=== PATIENT | male | born 1985 | race Caucasian/White ===

== ENCOUNTER 2017-04-25 22:29 | Emergency (ER) | payer SELFPAY ==
[2017-04-25] MEDS ORDERED: LORazepam 2 MG/ML INJ IVP ONE (22:34)
[2017-04-25] MEDS ORDERED: ONDANSETRON 4 MG/2 ML VIAL IVP ONE (22:34)
[2017-04-25] MEDS ORDERED: NS 1,000 ML IV ONE ×2 (22:34)
--- NOTE | 2017-04-25 22:35 | EDPHY ---
H & P HPI/ROS: CHIEF COMPLAINT: Seizure HISTORY OF PRESENT ILLNESS: This patient is a 32-year-old male, he presents emergency room after he had a witnessed seizure by friends. EMS reported seizure activity by 2 min. This was witnessed by friends. Generalized clonic activity. Patient's states he has never had a seizure. Patient reports that he was just hospitalized last week for alcohol withdrawal. He drinks all daily. He thinks that he may have he missed alcohol yesterday. His last drink he thinks was 2 days ago. Upon arrival to the emergency room he is tachycardic and tremulous. He is complaining of nausea. He denies chest pain or shortness of breath. He does have abrasion to the lateral aspect of his tongue. On the right side. Otherwise no bowel bladder incontinence. The patient was postictal per EMS. The patient is now alert and oriented x4 upon arrival to the emergency room. Past Medical History: Alcohol withdrawal, alcoholism Past Surgical History: Significant surgery Social History: Daily alcohol use. Denies illicit drugs or tobacco. Family History: Noncontributory ROS REVIEW OF SYSTEMS: A comprehensive 10 point review of systems is otherwise negative aside from elements mentioned in the history of present illness. Exam Constitutional appears nontoxic triage nursing summary reviewed, vital signs reviewed, awake/alert. Tachycardic 113. Somewhat tremulous. Eyes normal conjunctivae and sclera, EOMI, PERRLA. HENT normal inspection, atraumatic, moist mucus membranes, no epistaxis, neck supple/ no meningismus, no raccoon eyes. Respiratory clear to auscultation bilaterally, normal breath sounds, no respiratory distress, no wheezing. Cardiovascular tachycardic, regular rhythm, no murmur, no edema, distal pulses normal. Gastrointestinal soft, non-tender, no rebound, no guarding, normal bowel sounds, no distension, no pulsatile mass. Genitourinary no CVA tenderness. Musculoskeletal no midline vertebral tenderness, full range of motion, no calf swelling, no tenderness of extremities, no meningismus, good pulses, neurovascularly intact. Skin pink, warm, & dry, no rash, skin atraumatic. Neurologic tremulous. awake, alert and oriented x 3, AAOx3, moves all 4 extremities equally, motor intact, sensory intact, CN II-XII intact, normal cerebellar, normal vision, normal speech. Psychiatric normal mood/affect. Heme/Lymph/Immune no lymphadenopathy. Differential Diagnosis: Includes but is not limited to in a particular order acute alcohol withdrawal, electrolyte disturbance, dehydration, alcohol draw seizure, alcohol dependency. Medical Decision Making: Plan for this patient IV establishment IV fluid bolus 1 L normal saline, IV Ativan for seizure activity, Zofran for nausea, CT scan head without contrast, basic electrolytes re-evaluate. Re-evaluation: CT scan head without contrast for seizure shows no evidence of acute traumatic injury. Brain atrophy noted. No bleed. 2339: Patient's blood work is reviewed. Low bicarb consistent with seizure activity. Patient's electrolytes are appropriate. CBC unremarkable. CT scan unremarkable. Patient feeling better after 2 L normal saline, IV Phenergan IV Zofran and IV Ativan. Most likely cause of seizure is the absence of alcohol in a daily drinker. Vital signs have improved. Heart rate down to 89. Patient feeling much better. 1254: Patient re-evaluate and he is sleeping. Heart rate in the 80s. He is resting comfortably has no complaints. He is no longer tremulous. I feel comfortable allowing him to go to the [facility]. I recommend he refrain from drinking alcohol. Librium will be provided. Source: Patient - Medical/Surgical History Hx Asthma: No Hx Chronic Respiratory Disease: No Hx Diabetes: No Hx Cardiac Disease: No Hx Renal Disease: No Hx Cirrhosis: No Hx Alcoholism: Yes Hx HIV/AIDS: No Hx Splenectomy or Spleen Trauma: No Other PMH: a-fib. sugery lump in mouth removed, scoliosis - Social History Smoking Status: Former smoker Constitutional: Initial Vital Signs Heart Rate 102 H 04/25/17 22:34 Respiratory Rate 20 04/25/17 22:34 Blood Pressure 125/90 H 04/25/17 22:34 O2 Sat (%) 97 04/25/17 22:34 O2 Delivery Mode Room Air Allergies/Adverse Reactions: tree nut [nuts] Allergy (Mild, Verified 07/21/14 09:24) Home Medications: Medication Instructions Recorded NK [No Known Home Meds] 07/22/14 Medical Decision Making - Diagnostics Imaging Results: Imaging Impressions Head CT 04/25/17 22:36 Impression: 1. Mild diffuse atrophy. 2. No acute hemorrhage, hydrocephalus, or mass effect. 3. No epidural or subdural hematoma. Findings and recommendations discussed with Emergency Department physician, Sundar Aguilar MD at 23:13 hour, 04/25/2017. Final report concurs with initial preliminary interpretation. - Data Points Laboratory Results: Laboratory Results 04/25/17 22:20 04/25/17 22:20 04/26/17 04/25/17 04/25/17 00:00 22:20 22:20 WBC 9.58 10^3/uL H 10^3/uL (3.80-9.50) RBC 4.74 10^6/uL 10^6/uL (4.40-6.38) Hgb 15.5 g/dL g/dL (13.7-17.5) Hct 45.5 % % (40.0-51.0) MCV 96.0 fL fL (81.5-99.8) MCH 32.7 pg pg (27.9-34.1) MCHC 34.1 g/dL g/dL (32.4-36.7) RDW 13.2 % % (11.5-15.2) Plt Count 289 10^3/uL 10^3/uL (150-400) MPV 9.9 fL fL (8.7-11.7) Neut % (Auto) 50.2 % % (39.3-74.2) Lymph % (Auto) 34.6 % % (15.0-45.0) [place] % (Auto) 13.0 % % (4.5-13.0) Eos % (Auto) 0.4 % L % (0.6-7.6) Baso % (Auto) 1.5 % % (0.3-1.7) Nucleat RBC Rel Count 0.0 % % (0.0-0.2) Absolute Neuts (auto) 4.81 10^3/uL 10^3/uL (1.70-6.50) Absolute Lymphs (auto) 3.31 10^3/uL H 10^3/uL (1.00-3.00) Absolute Monos (auto) 1.25 10^3/uL H 10^3/uL (0.30-0.80) Absolute Eos (auto) 0.04 10^3/uL 10^3/uL (0.03-0.40) Absolute Basos (auto) 0.14 10^3/uL H 10^3/uL (0.02-0.10) Absolute Nucleated RBC 0.00 10^3/uL 10^3/uL (0-0.01) Immature Gran % 0.3 % % (0.0-1.1) Immature Gran # 0.03 10^3/uL 10^3/uL (0.00-0.10) Sodium 136 mEq/L mEq/L (135-145) Potassium 3.6 mEq/L mEq/L (3.5-5.2) Chloride 96 mEq/L L mEq/L (97-110) Carbon Dioxide 9 mEq/l L* mEq/l (22-31) Anion Gap 31 mEq/L H mEq/L (8-16) BUN 7 mg/dL mg/dL (7-23) Creatinine 1.0 mg/dL mg/dL (0.7-1.3) Estimated GFR > 60 Glucose 129 mg/dL H mg/dL (70-100) Calcium 10.4 mg/dL mg/dL (8.5-10.4) Total Bilirubin 1.4 mg/dL mg/dL (0.1-1.4) Conjugated Bilirubin 0.4 mg/dL mg/dL (0.0-0.5) Unconjugated Bilirubin 1.0 mg/dL mg/dL (0.0-1.1) AST 40 IU/L IU/L (17-59) ALT 22 IU/L IU/L (21-72) Alkaline Phosphatase 68 IU/L IU/L (38-126) Total Protein 8.2 g/dL g/dL (6.3-8.2) Albumin 5.7 g/dL H g/dL (3.5-5.0) Lipase 136 IU/L IU/L (23-300) Urine Opiates Screen NEGATIVE (NEGATIVE) Urine Barbiturates NEGATIVE (NEGATIVE) Ur Phencyclidine Scrn NEGATIVE (NEGATIVE) Ur Amphetamine Screen NEGATIVE (NEGATIVE) U Benzodiazepines Scrn NON-NEGATIVE H (NEGATIVE) Urine Cocaine Screen NEGATIVE (NEGATIVE) U Marijuana (THC) Screen NON-NEGATIVE H (NEGATIVE) Ethyl Alcohol < 10 mg/dL mg/dL (0-10) Medications Given: Discontinued Medications Sodium Chloride (Ns) 1,000 mls @ 0 mls/hr IV EDNOW ONE; Wide Open PRN Reason: Protocol Stop: 04/25/17 22:35 Last Admin: 04/25/17 22:52 Dose: 1,000 mls Sodium Chloride (Ns) 1,000 mls @ 0 mls/hr IV EDNOW ONE; Wide Open PRN Reason: Protocol Stop: 04/25/17 22:35 Last Admin: 04/25/17 22:52 Dose: 1,000 mls Lorazepam (Ativan Injection) 1 mg IVP EDNOW ONE Stop: 04/25/17 22:35 Last Admin: 04/25/17 22:52 Dose: 1 mg Ondansetron HCl (Zofran) 4 mg IVP EDNOW ONE Stop: 04/25/17 22:35 Last Admin: 04/25/17 22:52 Dose: 4 mg Promethazine HCl (Phenergan) 6.25 mg IVP ONCE ONE Stop: 04/25/17 22:57 Last Admin: 04/25/17 23:04 Dose: 6.25 mg Departure - Departure Disposition: Home, Routine, Self-Care Clinical Impression: Alcohol withdrawal Qualifiers: Complication of substance-induced condition: with unspecified complication Qualified Code(s): F10.239 - Alcohol dependence with withdrawal, unspecified Condition: Good Instructions: Alcohol Withdrawal (ED) Referrals: Patient,NotPresent [Unknown] - As per Instructions
[2017-04-25 22:43] LABS: PLATELET COUNT 289 10^3/uL (150-400)
[2017-04-25] MEDS ORDERED: PROMETHAZINE HCL 25 MG/ML INJ IVP ONE (22:56)
[2017-04-26] MEDS ORDERED: CHLORDIAZEPOXIDE 25MG PREPK#6 BTL TAKEHOME ONE (00:56)
[2017-04-26] MEDS ORDERED: chlordiazePOXIDE 25 MG CAP PO ONE (00:57)
[2017-04-26 01:03] VITALS: BP 122/76; PULSE 91; RESP 20; TEMP 99; O2SAT 98
== END 2017-04-26 01:25 | disposition home or self-care (01) ==
LOC: EDUNIT#
DX: F10.239 Alcohol dependence with withdrawal, unspecified (principal); E86.9 Volume depletion, unspecified; Z87.891 Personal history of nicotine dependence
CPT/HCPCS: 80305; 96374; G0480; J2060; J2405; J2550

== ENCOUNTER 2018-03-10 12:24 | Emergency (ER) | payer SELFPAY ==
[2018-03-10] MEDS ORDERED: ONDANSETRON 4 MG/2 ML VIAL IVP ONE (13:24)
[2018-03-10] MEDS ORDERED: NS 1,000 ML IV ONE ×2 (13:24→13:57)
[2018-03-10] MEDS ORDERED: PROMETHAZINE HCL 25 MG/ML INJ IVP ONE (13:24)
--- NOTE | 2018-03-10 13:24 | EDPHY ---
HPI/HX/ROS/PE/MDM Narrative: CHIEF COMPLAINT: Nausea, vomiting, abdominal pain, possible medication side effects HISTORY OF PRESENT ILLNESS: The patient is a 33 y/o male with a history of alcoholism and marijuana use complaining of nausea and vomiting secondary to naltrexone taken to reduce alcohol cravings. Last alcohol intake was 14 days ago and has not had any alcohol since then. He has been using marijuana to reduce the cravings for alcohol. Last Sunday, 7 days ago, his primary care provider prescribed naltrexone to further reduce alcohol cravings. He reports the naltrexone made him nauseated. He was prescribed Zofran for nausea and had some improvement in nausea. He began vomiting this morning, prompting his visit. He has associated abdominal pain in the right upper quadrant, constipation, lower flank pain bilaterally, lightheadedness, headache, and a small amount of blood in his emesis. He has a history of ketoacidosis and gastritis with withdrawal. He denies diarrhea, difficulty urinating, swelling in the legs, rash, or other associated symptoms. He denies history of diabetes, abdominal surgery, or other relevant conditions. No fever, chills, chest pain, shortness of breath, palpitations, diarrhea, urinary complaints. REVIEW OF SYSTEMS: A comprehensive 10 system review of systems is otherwise negative aside from elements mentioned in the history of present illness and medical decision making PAST MEDICAL HISTORY: Alcoholism, marijuana use, ketoacidosis and gastritis with withdrawal SOCIAL HISTORY: petroleum transport driver, lives in [place], medicaid patient VITAL SIGNS: Reviewed by me GENERAL: Well-developed, well-nourished, resting in no respiratory distress. Shaky. HEENT: Atraumatic. Eyes: No icterus, no injection. Mouth: moist mucous membranes. No erythema or lesions. Neck: supple with no adenopathy. LUNGS: Clear to auscultation bilaterally, no wheezes, rhonchi or rales. CARDIAC: Regular rate and rhythm, no rubs, murmurs or gallops. ABDOMEN: Diffuse abdominal tenderness, worse in the upper abdomen. Soft, nondistended, bowel sounds normal. No guarding or rebound. BACK: No CVA tenderness. EXTREMITIES: No trauma. No edema. Range of motion is normal throughout. NEURO: Tremulous. Alert and oriented, grossly nonfocal. SKIN: Warm and dry, no rash. No icterus. PSYCHIATRIC: Normal mentation, no agitation. ED Course: The patient presents with nausea and vomiting. He went through alcohol withdrawal recently and has been taking naltrexone to decrease alcohol cravings. He believes the naltrexone has been causing his nausea and vomiting. Zofran has not improved his symptoms. He has complaints of abdominal pain, lower bilateral back pain, and constipation. Plan for CBC, basic metabolic panel , lipase, liver function, and urinalysis. 1 L NS fluids, 4 mg Zofran, and 12.5 mg Phenergan for symptoms. 2:40 PM: The patient's condition has improved. He is beginning an PO challenge. 3:00 PM: The patient's labs are largely unremarkable. He is tolerating water at this time, but reports that the nausea has not gone away. Plan for Ativan and further PO challenges. 3:45 p.m.: Patient has improved with respect was nausea after the Ativan. He still complains of epigastric abdominal pain. Patient received ketamine 20 mg IV. He was comfortable being discharged with Phenergan to use for ongoing nausea. He will not take the naltrexone today and will follow up with his primary care physician tomorrow. Abdomen is soft, mild epigastric tenderness, no guarding or rebound. Labs including LFTs and lipase are normal. MDM: Differential diagnosis of the patient's nausea and vomiting was considered including but not limited to gastroenteritis, gastritis, alcohol intoxication, withdrawal symptoms, intraabdominal processes including appendicitis, pancreatitis, bowel obstruction and medication side effect. - Data Points Laboratory Results: Laboratory Results 03/10/18 13:24 03/10/18 13:24 03/10/18 03/10/18 03/10/18 13:40 13:24 13:24 WBC 6.52 10^3/uL 10^3/uL (3.80-9.50) RBC 5.31 10^6/uL 10^6/uL (4.40-6.38) Hgb 17.0 g/dL g/dL (13.7-17.5) Hct 46.9 % % (40.0-51.0) MCV 88.3 fL fL (81.5-99.8) MCH 32.0 pg pg (27.9-34.1) MCHC 36.2 g/dL g/dL (32.4-36.7) RDW 12.8 % % (11.5-15.2) Plt Count 336 10^3/uL 10^3/uL (150-400) MPV 10.0 fL fL (8.7-11.7) Neut % (Auto) 82.4 % H % (39.3-74.2) Lymph % (Auto) 8.1 % L % (15.0-45.0) [place] % (Auto) 7.7 % % (4.5-13.0) Eos % (Auto) 0.8 % % (0.6-7.6) Baso % (Auto) 0.8 % % (0.3-1.7) Nucleat RBC Rel Count 0.0 % % (0.0-0.2) Absolute Neuts (auto) 5.37 10^3/uL 10^3/uL (1.70-6.50) Absolute Lymphs (auto) 0.53 10^3/uL L 10^3/uL (1.00-3.00) Absolute Monos (auto) 0.50 10^3/uL 10^3/uL (0.30-0.80) Absolute Eos (auto) 0.05 10^3/uL 10^3/uL (0.03-0.40) Absolute Basos (auto) 0.05 10^3/uL 10^3/uL (0.02-0.10) Absolute Nucleated RBC 0.00 10^3/uL 10^3/uL (0-0.01) Immature Gran % 0.2 % % (0.0-1.1) Immature Gran # 0.01 10^3/uL 10^3/uL (0.00-0.10) RBC/WBC/PLT Morphology TNP Platelet Estimate TNP Sodium 139 mEq/L mEq/L (135-145) Potassium 3.9 mEq/L mEq/L (3.3-5.0) Chloride 104 mEq/L mEq/L (97-110) Carbon Dioxide 24 mEq/l mEq/l (22-31) Anion Gap 11 mEq/L mEq/L (6-14) BUN 13 mg/dL mg/dL (7-23) Creatinine 1.0 mg/dL mg/dL (0.7-1.3) Estimated GFR > 60 Glucose 105 mg/dL H mg/dL (70-100) Calcium 9.8 mg/dL mg/dL (8.5-10.4) Total Bilirubin 1.2 mg/dL mg/dL (0.1-1.4) Conjugated Bilirubin 0.3 mg/dL mg/dL (0.0-0.5) Unconjugated Bilirubin 0.9 mg/dL mg/dL (0.0-1.1) AST 25 IU/L IU/L (17-59) ALT 35 IU/L IU/L (21-72) Alkaline Phosphatase 69 IU/L IU/L (38-126) Total Protein 7.6 g/dL g/dL (6.3-8.2) Albumin 4.8 g/dL g/dL (3.5-5.0) Lipase 102 IU/L IU/L (23-300) Urine Color YELLOW Urine Appearance CLEAR Urine pH 8.0 H (5.0-7.5) Ur Specific [place] 1.020 (1.002-1.030) Urine Protein 2+ H (NEGATIVE) Urine Ketones TRACE H (NEGATIVE) Urine Blood NEGATIVE (NEGATIVE) Urine Nitrate NEGATIVE (NEGATIVE) Urine Bilirubin NEGATIVE (NEGATIVE) Urine Urobilinogen NEGATIVE EU EU (0.2-1.0) Ur Leukocyte Esterase NEGATIVE (NEGATIVE) Urine RBC 1-3 /hpf /hpf (0-3) Urine WBC 1-3 /hpf /hpf (0-3) Ur Epithelial Cells TRACE /lpf /lpf (NONE-1+) Urine Mucus TRACE /lpf /lpf (NONE-1+) Urine Glucose NEGATIVE (NEGATIVE) Medications Given: Discontinued Medications Sodium Chloride (Ns) 1,000 mls @ 0 mls/hr IV EDNOW ONE; Wide Open PRN Reason: Protocol Stop: 03/10/18 13:25 Last Admin: 03/10/18 13:30 Dose: 1,000 mls Sodium Chloride (Ns) 1,000 mls @ 0 mls/hr IV ONCE ONE; Wide Open PRN Reason: Protocol Stop: 03/10/18 13:58 Last Admin: 03/10/18 14:34 Dose: 1,000 mls Ketamine HCl (Ketamine) 20 mg IVP EDNOW ONE Stop: 03/10/18 16:08 Last Admin: 03/10/18 16:46 Dose: 20 mg Lorazepam (Ativan Injection) 1 mg IVP EDNOW ONE Stop: 03/10/18 15:11 Last Admin: 03/10/18 15:14 Dose: 1 mg Ondansetron HCl (Zofran) 4 mg IVP EDNOW ONE Stop: 03/10/18 13:25 Last Admin: 03/10/18 13:30 Dose: 4 mg Promethazine HCl (Phenergan) 12.5 mg IVP EDNOW ONE Stop: 03/10/18 13:25 Last Admin: 03/10/18 13:30 Dose: 12.5 mg General Time Seen by Provider: 03/10/18 13:15 Initial Vital Signs: Initial Vital Signs Temperature (C) 36.4 C 03/10/18 12:26 Heart Rate 91 03/10/18 12:26 Respiratory Rate 18 03/10/18 12:26 Blood Pressure 188/166 H 03/10/18 12:26 O2 Sat (%) 98 03/10/18 12:26 O2 Delivery Mode Room Air Allergies/Adverse Reactions: tree nut [nuts] Allergy (Mild, Verified 03/10/18 12:25) Home Medications: Medication Instructions Recorded Ondansetron Odt [Zofran Odt] 4 mg PO Q4PRN PRN #7 tab 02/26/18 Promethazine HCl [Phenergan 12.5mg 12.5 mg PO Q8 PRN #12 tablet 03/10/18 tab] Departure - Departure Disposition: Home, Routine, Self-Care Clinical Impression: Nausea & vomiting Qualifiers: Vomiting type: unspecified Vomiting Intractability: non-intractable Qualified Code(s): R11.2 - Nausea with vomiting, unspecified Medication reaction Qualifiers: Encounter type: initial encounter Qualified Code(s): T50.905A - Adverse effect of unspecified drugs, medicaments and biological substances, initial encounter Condition: Good Instructions: Acute Nausea and Vomiting (ED), Abdominal Pain (ED) Additional Instructions: 1. Take phergan as directed as needed for nausea. 2. Follow up with your primary care provider regarding the naltrexone tomorrow. 3. Return to the emergency department for any worsening of condition, including vomiting blood, increased abdominal pain, or other worsening. Referrals: [facility] [Other] - As per Instructions Prescriptions: Promethazine HCl [Phenergan 12.5mg tab] 12.5 mg PO Q8 PRN #12 tablet PRN Reason: nausea Report Scribed for: Sahara Roche Report Scribed by: Joya Mcadams Date of Report: 03/10/18 Time of Report: 14:14 Physician Review and Approval Statement: Portions of this note were transcribed by a medical instrument technician. I personally performed a history, physical exam, medical decision making, and confirmed accuracy of information the transcribed note.
[2018-03-10 13:36] LABS: PLATELET COUNT 336 10^3/uL (150-400)
[2018-03-10] MEDS ORDERED: LORazepam 2 MG/ML INJ IVP ONE (15:10)
[2018-03-10] MEDS ORDERED: KETAMINE 200 MG/20 ML VIAL IVP ONE (16:07)
[2018-03-10 16:55] VITALS: BP 108/71
== END 2018-03-10 16:53 | disposition home or self-care (01) ==
DX: R11.2 Nausea with vomiting, unspecified (principal); T50.905A Adverse effect of unspecified drugs, medicaments and biological substances, initial encounter; E86.9 Volume depletion, unspecified; K92.0 Hematemesis; R51 Headache
CPT/HCPCS: 96374; J2060; J2405; J2550

== ENCOUNTER 2018-05-16 08:57 | Inpatient (IN) | payer MEDICAID ==
[2018-05-16] MEDS ORDERED: NS 1,000 ML IV ONE (09:31)
[2018-05-16] MEDS ORDERED: ONDANSETRON 4 MG/2 ML VIAL IVP ONE ×2 (09:31→10:59)
[2018-05-16] MEDS ORDERED: LORazepam 2 MG/ML INJ IVP ONE ×2 (09:41→09:43)
[2018-05-16] MEDS ORDERED: LORazepam 1 MG TAB PO PRN (09:47)
[2018-05-16] MEDS: LORazepam 2 MG/ML INJ IVP PRN ×6 (09:52→17:25)
--- NOTE | 2018-05-16 10:34 | EDPHY ---
H & P Stated Complaint: ETOH withdrawl, n/v Time Seen by Provider: 05/16/18 09:31 HPI/ROS: CHIEF COMPLAINT: Alcohol withdrawal, vomiting HISTORY OF PRESENT ILLNESS: 33-year-old male with alcoholism presents with vomiting and tremulousness. Last alcoholic beverage was yesterday morning. Onset of vomiting yesterday evening, unable to tolerate oral fluids. Associated with diffuse tremulousness and visual hallucinations. Unable to sleep last evening d/t vomiting and anxiety. Symptoms are moderate. History of prior alcohol withdrawal seizure and prior admission for alcohol withdrawal. REVIEW OF SYSTEMS: complete 10 point ROS reviewed and is negative except for the noted elements in the HPI - Personal History Current Tetanus/Diphtheria Vaccine: Yes Current Tetanus Diphtheria and Acellular Pertussis (TDAP): Yes - Medical/Surgical History Hx Asthma: No Hx Chronic Respiratory Disease: No Hx Diabetes: No Hx Cardiac Disease: No Hx Renal Disease: No Hx Cirrhosis: No Hx Alcoholism: Yes Hx HIV/AIDS: No Hx Splenectomy or Spleen Trauma: No Other PMH: a-fib, ETOH. sugery lump in mouth removed, scoliosis - Social History Smoking Status: Former smoker Alcohol Use: Heavy Drug Use: None - Physical Exam Exam: General Appearance: Alert, pleasant, seen after IV Ativan Eyes: Pupils equal and round, no conjunctival pallor or injection ENT, Mouth: Mucous membranes dry Neck: Normal inspection Respiratory: Lungs are clear to auscultation Cardiovascular: Regular tachycardia Gastrointestinal: Abdomen is soft and nontender Neurological: A&O, resting tremor, nonfocal exam Skin: Warm and dry Extremities: Normal inspection Psychiatric: Anxious Constitutional: Initial Vital Signs Temperature (C) 36.9 C 05/16/18 09:19 Heart Rate 111 H 05/16/18 09:19 Respiratory Rate 20 05/16/18 09:19 Blood Pressure 121/95 H 05/16/18 09:19 O2 Sat (%) 96 05/16/18 09:19 O2 Delivery Mode Room Air Allergies/Adverse Reactions: tree nut [nuts] Allergy (Mild, Verified 05/16/18 09:19) Home Medications: Medication Instructions Recorded NK [No Known Home Meds] 05/16/18 Medical Decision Making ED Course/Re-evaluation: Patient presents in acute alcohol withdrawal. CIWA 26. CIWA protocol initiated on patient arrival. On my exam, he feels better after an initial Ativan 4 mg IV. He remains tachycardic and slightly tremulous. Nausea has resolved. A 2nd L of normal saline was given. Labs c/w AKA. Will observe and continue the CIWA protocol. 1230: nausea resolved, continues to be agitated and tremulous after Ativan 6mg IV and 2l NS. CIWA 7. Will admit for alcohol withdrawal. The hospitalist service was consulted for admission. 2:00 p.m.: Ativan 1 mg IV given for increasing tremulousness. The patient was transported to the SDU in improved condition. Differential Diagnosis: includes though not limited to delirium tremens, alcohol withdrawal seizure, severe dehydration, electrolyte abnormality, hypoglycemia. - Data Points Laboratory Results: Laboratory Results 05/16/18 09:46 05/16/18 09:46 05/16/18 05/16/18 05/16/18 09:46 09:46 09:46 WBC 12.20 10^3/uL H 10^3/uL (3.80-9.50) RBC 4.87 10^6/uL 10^6/uL (4.40-6.38) Hgb 15.9 g/dL g/dL (13.7-17.5) Hct 47.0 % % (40.0-51.0) MCV 96.5 fL fL (81.5-99.8) MCH 32.6 pg pg (27.9-34.1) MCHC 33.8 g/dL g/dL (32.4-36.7) RDW 15.9 % H % (11.5-15.2) Plt Count 296 10^3/uL 10^3/uL (150-400) MPV 10.5 fL fL (8.7-11.7) Neut % (Auto) 88.2 % H % (39.3-74.2) Lymph % (Auto) 4.1 % L % (15.0-45.0) [place] % (Auto) 6.8 % % (4.5-13.0) Eos % (Auto) 0.0 % L % (0.6-7.6) Baso % (Auto) 0.5 % % (0.3-1.7) Nucleat RBC Rel Count 0.0 % % (0.0-0.2) Absolute Neuts (auto) 10.76 10^3/uL H 10^3/uL (1.70-6.50) Absolute Lymphs (auto) 0.50 10^3/uL L 10^3/uL (1.00-3.00) Absolute Monos (auto) 0.83 10^3/uL H 10^3/uL (0.30-0.80) Absolute Eos (auto) 0.00 10^3/uL L 10^3/uL (0.03-0.40) Absolute Basos (auto) 0.06 10^3/uL 10^3/uL (0.02-0.10) Absolute Nucleated RBC 0.00 10^3/uL 10^3/uL (0-0.01) Immature Gran % 0.4 % % (0.0-1.1) Immature Gran # 0.05 10^3/uL 10^3/uL (0.00-0.10) RBC/WBC/PLT Morphology TNP Platelet Estimate TNP Sodium 141 mEq/L mEq/L (135-145) Potassium 4.6 mEq/L mEq/L (3.5-5.2) Chloride 105 mEq/L mEq/L (97-110) Carbon Dioxide 9 mEq/l L* mEq/l (22-31) Anion Gap 27 mEq/L H mEq/L (6-14) BUN 11 mg/dL mg/dL (7-23) Creatinine 1.3 mg/dL mg/dL (0.7-1.3) Estimated GFR > 60 Glucose 157 mg/dL H mg/dL (70-100) Calcium 9.5 mg/dL mg/dL (8.5-10.4) Total Bilirubin 1.9 mg/dL H mg/dL (0.1-1.4) Conjugated Bilirubin 0.6 mg/dL H mg/dL (0.0-0.5) Unconjugated Bilirubin 1.3 mg/dL H mg/dL (0.0-1.1) AST 62 IU/L H IU/L (17-59) ALT 35 IU/L IU/L (21-72) Alkaline Phosphatase 111 IU/L IU/L (38-126) Total Protein 8.5 g/dL H g/dL (6.3-8.2) Albumin 5.4 g/dL H g/dL (3.5-5.0) Lipase 61 IU/L IU/L (23-300) Ethyl Alcohol < 10 mg/dL mg/dL (0-10) Medications Given: Lorazepam (Ativan Injection) 0 mg IVP Q1H PRN; Protocol PRN Reason: Alcohol Withdrawal w/IV access Stop: 05/16/18 21:47 Last Admin: 05/16/18 11:04 Dose: 2 mg Lorazepam (Ativan Injection) 0 mg IVP Q1H PRN; Protocol PRN Reason: Alcohol Withdrawal w/IV access Stop: 11/12/18 13:15 Last Admin: 05/16/18 14:02 Dose: 1 mg Discontinued Medications Sodium Chloride (Ns) 1,000 mls @ 0 mls/hr IV ONCE ONE; Wide Open PRN Reason: Protocol Stop: 05/16/18 09:32 Last Admin: 05/16/18 09:36 Dose: 1,000 mls Lorazepam (Ativan Injection) 1 mg IVP EDNOW ONE Stop: 05/16/18 09:42 Last Admin: 05/16/18 09:48 Dose: 1 mg Lorazepam (Ativan Injection) 1 mg IVP EDNOW ONE Stop: 05/16/18 09:44 Last Admin: 05/16/18 09:47 Dose: 1 mg Ondansetron HCl (Zofran) 4 mg IVP EDNOW ONE Stop: 05/16/18 09:32 Last Admin: 05/16/18 09:36 Dose: 4 mg Ondansetron HCl (Zofran) 4 mg IVP EDNOW ONE Stop: 05/16/18 11:00 Last Admin: 05/16/18 11:00 Dose: 4 mg Departure - Departure Disposition: [facility] Acute Clinical Impression: Alcohol withdrawal Qualifiers: Complication of substance-induced condition: with unspecified complication Qualified Code(s): F10.239 - Alcohol dependence with withdrawal, unspecified Condition: Fair
[2018-05-16] MEDS ORDERED: ONDANSETRON 4 MG/2 ML VIAL ONE (10:56)
[2018-05-16 11:46] LABS: PLATELET COUNT 296 10^3/uL (150-400)
[2018-05-16] MEDS ORDERED: ONDANSETRON DISINTEGRATING 4 MG TAB PO PRN (13:16)
[2018-05-16] MEDS ORDERED: NS 500 ML IV PRN (13:16)
[2018-05-16] MEDS ORDERED: FLUMAZENIL 0.5 MG/5 ML MDV IVP PRN (13:16)
[2018-05-16] MEDS ORDERED: ONDANSETRON 4 MG/2 ML VIAL IVP PRN (13:16)
[2018-05-16] MEDS ORDERED: ACETAMINOPHEN 325 MG TAB PO PRN (13:16)
--- NOTE | 2018-05-16 13:39 | PDGENHP ---
History and Physical - Chief Complaint alcohol withdrawal - History of Present Illness Patient is a 33-year-old male with past medical history of heavy alcohol abuse presents to the ER with alcohol withdrawal. He says that he drinks about a L of vodka per day and his last drink was yesterday. He says he wants to stop drinking and so he stopped yesterday morning. By this morning he was agitated, tremulous, anxious and heart was racing. [facility] a dose of 25 mg of Librium. He developed some nausea and vomiting while there and decided that he needed to come to the emergency room. He said that he is throwing up anything that he takes orally but has no bloody or black emesis. He denied any black or bloody stools. He does say his stomach hurts retching. Otherwise he denies any chest pain cough fevers chills or other symptoms. History Information - Allergies/Home Medication List Allergies/Adverse Reactions: tree nut [nuts] Allergy (Mild, Verified 05/16/18 09:19) Home Medications: NK [No Known Home Meds] 05/16/18 [Last Taken Unknown] I have personally reviewed and updated: family history, medical history, social history, surgical history - Past Medical History Additional medical history: alcohol abuse and dependence. - Family History Positive for: non-pertinent - Social History Smoking Status: Former smoker Review of Systems Review of Systems: ROS: 10pt was reviewed & negative except for what was stated in HPI & below Physical Exam Physical Exam: Temp Pulse Resp BP Pulse Ox 36.9 C 104 H 18 114/101 H 98 05/16/18 09:19 05/16/18 12:29 05/16/18 12:29 05/16/18 12:29 05/16/18 12:29 Constitutional: uncomfortable Eyes: PERRL, anicteric sclera, EOMI Ears, Nose, Mouth, Throat: moist mucous membranes, hearing normal, ears appear normal, no oral mucosal ulcers Cardiovascular: tachycardia, No edema Respiratory: no respiratory distress, no rales or rhonchi, clear to auscultation Gastrointestinal: normoactive bowel sounds, soft, non-tender abdomen, no palpable masses Genitourinary: no bladder fullness, no bladder tenderness Skin: warm, normal color, no rashes or abrasions, no fluctuance, no induration, No mottled Musculoskeletal: full muscle strength, no muscle tenderness, normal joint ROM, no joint effusions Neurologic: AAOx3, CN II-XII Intact Psychiatric: interacting appropriately, not encephalopathic, thought process linear, anxious, agitated Lymph, Heme, Immunologic: no cervical LAD, no supraclavicular LAD Lab Data & Imaging Review 05/16/18 09:46 02 09:46 WBC 12.20 10^3/uL (3.80-9.50) H 05/16/18 09:46 RBC 4.87 10^6/uL (4.40-6.38) 05/16/18 09:46 Hgb 15.9 g/dL (13.7-17.5) 05/16/18 09:46 Hct 47.0 % (40.0-51.0) 05/16/18 09:46 MCV 96.5 fL (81.5-99.8) 05/16/18 09:46 MCH 32.6 pg (27.9-34.1) 05/16/18 09:46 MCHC 33.8 g/dL (32.4-36.7) 05/16/18 09:46 RDW 15.9 % (11.5-15.2) H 05/16/18 09:46 Plt Count 296 10^3/uL (150-400) 05/16/18 09:46 MPV 10.5 fL (8.7-11.7) 05/16/18 09:46 Neut % (Auto) 88.2 % (39.3-74.2) H 05/16/18 09:46 Lymph % (Auto) 4.1 % (15.0-45.0) L 05/16/18 09:46 [place] % (Auto) 6.8 % (4.5-13.0) 05/16/18 09:46 Eos % (Auto) 0.0 % (0.6-7.6) L 05/16/18 09:46 Baso % (Auto) 0.5 % (0.3-1.7) 05/16/18 09:46 Nucleat RBC Rel Count 0.0 % (0.0-0.2) 05/16/18 09:46 Absolute Neuts (auto) 10.76 10^3/uL (1.70-6.50) H 05/16/18 09:46 Absolute Lymphs (auto) 0.50 10^3/uL (1.00-3.00) L 05/16/18 09:46 Absolute Monos (auto) 0.83 10^3/uL (0.30-0.80) H 05/16/18 09:46 Absolute Eos (auto) 0.00 10^3/uL (0.03-0.40) L 05/16/18 09:46 Absolute Basos (auto) 0.06 10^3/uL (0.02-0.10) 05/16/18 09:46 Absolute Nucleated RBC 0.00 10^3/uL (0-0.01) 05/16/18 09:46 Immature Gran % 0.4 % (0.0-1.1) 05/16/18 09:46 Immature Gran # 0.05 10^3/uL (0.00-0.10) 05/16/18 09:46 RBC/WBC/PLT Morphology TNP 05/16/18 09:46 Platelet Estimate TNP 05/16/18 09:46 Sodium 141 mEq/L (135-145) 05/16/18 09:46 Potassium 4.6 mEq/L (3.5-5.2) 05/16/18 09:46 Chloride 105 mEq/L (97-110) 05/16/18 09:46 Carbon Dioxide 9 mEq/l (22-31) L* 05/16/18 09:46 Anion Gap 27 mEq/L (6-14) H 05/16/18 09:46 BUN 11 mg/dL (7-23) 05/16/18 09:46 Creatinine 1.3 mg/dL (0.7-1.3) 05/16/18 09:46 Estimated GFR > 60 05/16/18 09:46 Glucose 157 mg/dL (70-100) H 05/16/18 09:46 Calcium 9.5 mg/dL (8.5-10.4) 05/16/18 09:46 Total Bilirubin 1.9 mg/dL (0.1-1.4) H 05/16/18 09:46 Conjugated Bilirubin 0.6 mg/dL (0.0-0.5) H 05/16/18 09:46 Unconjugated Bilirubin 1.3 mg/dL (0.0-1.1) H 05/16/18 09:46 AST 62 IU/L (17-59) H 05/16/18 09:46 ALT 35 IU/L (21-72) 05/16/18 09:46 Alkaline Phosphatase 111 IU/L (38-126) 05/16/18 09:46 Total Protein 8.5 g/dL (6.3-8.2) H 05/16/18 09:46 Albumin 5.4 g/dL (3.5-5.0) H 05/16/18 09:46 Lipase 61 IU/L (23-300) 05/16/18 09:46 Ethyl Alcohol < 10 mg/dL (0-10) 05/16/18 09:46 Assessment & Plan Assessment: 33 year old male with pmh etoh abuse admitted with etoh withdrawal. Alcohol withdrawal (Acute)-I discussed the case with the emergency room physician and the patient was given fairly large doses of Ativan in the emergency room and continues to score fairly high on his CIWA scores. Drinks a L a day and has been seen here multiple times for alcohol withdrawal. He is tachycardic but otherwise vital signs are within normal limits. -CIWA protocol -he continues to score high on ciwa score despite max doses of ativan, will start precedex. -folic acid, thiamine, multivitamin -seizure precautions Acidosis- with elevated anion gap and very low bicarb. I requested lactate be ordered in ER. He has a low bicarb suggesting gi losses, with low CO2 suggesting resp compensation. he is not hypotensive. -CC to see -hydration -check ABG -consider 1-2 amps bicarb depending on abg Chest pain- patient complained of chest pain upon arrival to [facility], which prompted an ecg to be ordered which in my review showed KIERAN, but due to ST elevation automatically triggered a cards eval. -trop -cards consult -tte -CT PE hx of atrial fibrillation- never actually documented here on tele or ecg, but patient says he has had paroxysmal afib, never lasted more than 24 hours. Currently ECG with sinus tach. His CHADS VASC is 0-. monitor NV- patient states he had blood tinged sputum in ER, but nurse says emesis was only stomach contents. -if any further vomiting check gastroccult -CT chest to rule out PE for chest pain Leukocytosis- likely acute phase reactant in the setting of alcohol withdrawal. Will monitor Hyperbilirubinemia-likely secondary to heavy alcohol abuse. His liver function tests are actually better than they have been in the past. -monitor -no alcohol Prophylaxis-Lovenox, SCDs Fluids-intravenous saline Electrolytes-within normal limits Nutrition-regular diet Code-full cor Dispo-inpatient for acute alcohol withdrawal
[2018-05-16] MEDS: NS 1,000 ML IV SCH (14:57)
--- NOTE | 2018-05-16 15:05 | PDCARCONS ---
Cardiology Consult Reason for Consult: Abnormal EKG Chief Complaint: Alcohol withdrawal History of Present Illness: 33-year-old male history of alcoholism complicated by atrial fibrillation admitted with withdrawal from outpatient rehab. Patient been having nausea and vomiting. EKG was performed and I am asked to comment. On my arrival he is having no chest pain PND orthopnea. Had no palpitations syncope or near syncope. Continues to have belching and nausea and general malaise. Atrial fibrillation was recently diagnosed. He has had no cardiac evaluation. History Information - Allergies/Home Medication List Allergies/Adverse Reactions: tree nut [nuts] Allergy (Mild, Verified 05/16/18 09:19) Home Medications: NK [No Known Home Meds] 05/16/18 [Last Taken Unknown] I have personally reviewed and updated: family history, medical history, social history, surgical history Past Medical History: - Past Medical History atrial fibrillation - Social History Smoking Status: Former smoker Alcohol Use: Heavy Drug Use: None Physical Exam Physical Exam: Temp Pulse Resp BP Pulse Ox 36.9 C 102 H 16 134/81 H 95 05/16/18 14:08 05/16/18 14:08 05/16/18 14:08 05/16/18 14:08 05/16/18 14:08 Constitutional: unkempt Eyes: anicteric sclera Ears, Nose, Mouth, Throat: moist mucous membranes Cardiovascular: regular rate and rhythym, no murmur, rub, or gallop, pulses symmetric bilaterally, No systolic murmur Peripheral Pulses: 1+: carotid (R), carotid (L), femoral (R), femoral (L) Respiratory: no respiratory distress, no rales or rhonchi Gastrointestinal: No guarding, No rebound Skin: warm, No rash Neurologic: AAOx3, No facial droop Psychiatric: interacting appropriately, anxious Lymph, Heme, Immunologic: no cervical LAD, no supraclavicular LAD Lab and Imaging 05/16/18 09:46 05/16/18 09:46 WBC 12.20 10^3/uL (3.80-9.50) H 05/16/18 09:46 RBC 4.87 10^6/uL (4.40-6.38) 05/16/18 09:46 Hgb 15.9 g/dL (13.7-17.5) 05/16/18 09:46 Hct 47.0 % (40.0-51.0) 05/16/18 09:46 MCV 96.5 fL (81.5-99.8) 05/16/18 09:46 MCH 32.6 pg (27.9-34.1) 05/16/18 09:46 MCHC 33.8 g/dL (32.4-36.7) 05/16/18 09:46 RDW 15.9 % (11.5-15.2) H 05/16/18 09:46 Plt Count 296 10^3/uL (150-400) 05/16/18 09:46 MPV 10.5 fL (8.7-11.7) 05/16/18 09:46 Neut % (Auto) 88.2 % (39.3-74.2) H 05/16/18 09:46 Lymph % (Auto) 4.1 % (15.0-45.0) L 05/16/18 09:46 [place] % (Auto) 6.8 % (4.5-13.0) 05/16/18 09:46 Eos % (Auto) 0.0 % (0.6-7.6) L 05/16/18 09:46 Baso % (Auto) 0.5 % (0.3-1.7) 05/16/18 09:46 Nucleat RBC Rel Count 0.0 % (0.0-0.2) 05/16/18 09:46 Absolute Neuts (auto) 10.76 10^3/uL (1.70-6.50) H 05/16/18 09:46 Absolute Lymphs (auto) 0.50 10^3/uL (1.00-3.00) L 05/16/18 09:46 Absolute Monos (auto) 0.83 10^3/uL (0.30-0.80) H 05/16/18 09:46 Absolute Eos (auto) 0.00 10^3/uL (0.03-0.40) L 05/16/18 09:46 Absolute Basos (auto) 0.06 10^3/uL (0.02-0.10) 05/16/18 09:46 Absolute Nucleated RBC 0.00 10^3/uL (0-0.01) 05/16/18 09:46 Immature Gran % 0.4 % (0.0-1.1) 05/16/18 09:46 Immature Gran # 0.05 10^3/uL (0.00-0.10) 05/16/18 09:46 RBC/WBC/PLT Morphology TNP 05/16/18 09:46 Platelet Estimate TNP 05/16/18 09:46 Sodium 141 mEq/L (135-145) 05/16/18 09:46 Potassium 4.6 mEq/L (3.5-5.2) 05/16/18 09:46 Chloride 105 mEq/L (97-110) 05/16/18 09:46 Carbon Dioxide 9 mEq/l (22-31) L* 05/16/18 09:46 Anion Gap 27 mEq/L (6-14) H 05/16/18 09:46 BUN 11 mg/dL (7-23) 05/16/18 09:46 Creatinine 1.3 mg/dL (0.7-1.3) 05/16/18 09:46 Estimated GFR > 60 05/16/18 09:46 Glucose 157 mg/dL (70-100) H 05/16/18 09:46 Calcium 9.5 mg/dL (8.5-10.4) 05/16/18 09:46 Total Bilirubin 1.9 mg/dL (0.1-1.4) H 05/16/18 09:46 Conjugated Bilirubin 0.6 mg/dL (0.0-0.5) H 05/16/18 09:46 Unconjugated Bilirubin 1.3 mg/dL (0.0-1.1) H 05/16/18 09:46 AST 62 IU/L (17-59) H 05/16/18 09:46 ALT 35 IU/L (21-72) 05/16/18 09:46 Alkaline Phosphatase 111 IU/L (38-126) 05/16/18 09:46 Total Protein 8.5 g/dL (6.3-8.2) H 05/16/18 09:46 Albumin 5.4 g/dL (3.5-5.0) H 05/16/18 09:46 Lipase 61 IU/L (23-300) 05/16/18 09:46 Ethyl Alcohol < 10 mg/dL (0-10) 05/16/18 09:46 EKG additional interpertation: Sinus rhythm with early repolarization A/P Assessment: 33-year-old male with alcohol withdrawal/alcoholism complicated by atrial fibrillation. EKG shows early repolarization. Will plan for echocardiogram to establish degree of alcohol toxicity as it relates to his heart. The present time he is in sinus rhythm. Considerations for low-dose beta-sandra for symptoms. Will follow him in the ICU. Review of Systems Review of Systems: - Review of Systems Constitutional: malaise, weakness. denies: chills, fever EENTM: no symptoms reported Respiratory: no symptoms reported Cardiac: no symptoms reported Gastrointestinal/Abdominal: nausea, vomiting Genitourinary: no symptoms Musculoskelatal: no symptoms Skin: no symptoms Neurological: tremors Hematologic/Lymphatic: no symptoms reported Immunologic/allergic: no symptoms reported
--- NOTE | 2018-05-16 15:34 | GCON ---
[f rep st] CONSULTATION TRANSPORTATION SECURITY SCREENER CONSULTATION REASON FOR ADMISSION: Alcoholism, alcohol withdrawals, chest pain. HISTORY OF PRESENT ILLNESS: The patient is a 33-year-old white male with a past medical history incl uding alcohol abuse. He states he drinks about a liter of vodka per day. He wishes to quit drinking . He came to the emergency room, was agitated and tachycardic. He initially went to the [facility]. He st ates he began significant nausea and vomiting and that is what lead him to the emergency room. He garcia s been vomiting for approximately 12 hours straight. He states his emesis is somewhat blood tinged. He began having chest pains, worsened with vomiting. He denies any fever or night sweats. There is no cough or production of sputum. ALLERGIES: No known allergies to medications. I was asked to see the patient by Dr. Steve Arthur. MEDICATION: Includes Librium. PAST MEDICAL HISTORY: Significant for alcoholism. FAMILY HISTORY: Noncontributory. SOCIAL HISTORY: No history of tobacco use. Again, significant alcohol use. 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 He is single, without children. He has lived in [place] for 3 years, is really [facility]. REVIEW OF SYSTEMS: 10-point review of systems is performed and negative except for what is listed in the HPI. PHYSICAL EXAM: VITAL SIGNS: Blood pressure 134/81, pulse 102, respirations are 16, temperature is 3 6.9, oxygen saturation 95% on room air. GENERAL: He is a thin, but well-developed 33-year-old white male who has mild chest pain. HEENT: Eyes PERRL, EOMI. Throat shows no erythema or tonsillar hype rtrophy. NECK: Supple. There is no cervical adenopathy. HEART: Regular rate and rhythm without m urmurs, rubs, gallops. LUNGS: Clear to auscultation. No wheeze or rhonchi. ABDOMEN: Soft, nonten waqas. Bowel sounds are present. EXTREMITIES: No clubbing, cyanosis, or edema. LABORATORIES: White count is 12.2, hemoglobin 15, hematocrit 47, platelet count 296. Sodium 141, po tassium 4.6, chloride 105, CO2 is 9, BUN is 11, creatinine 1.3, glucose is 157, bilirubin is elevated at 1.9. AST is elevated 62, ALT is 35. Alcohol level is less than 10. IMPRESSION: 1. Chest pain, etiology which is unclear. Query whether this is cardiac in origin versus from his s ignificant nausea and vomiting. 2. Alcoholism. 3. Alcohol withdrawals. 4. Severe nausea and vomiting. RECOMMENDATIONS: 1. Agree with Cardiology consult. 2. Will check a CT scan of the chest to rule out PE as well as get a look at his esophagus. 3. Consider GI consultation. 4. Will change to Protonix from Pepcid. 5. Will check an ABG. 6. DVT and PE prophylaxis holding anticoagulation for now. 7. Stress ulcer prophylaxis. Is on Protonix. 8. [facility] protocol. /[id number]/MODL
[2018-05-16] MEDS ORDERED: PROMETHAZINE HCL 25 MG/ML INJ IVP PRN (15:59)
[2018-05-16] MEDS: PANTOPRAZOLE SODIUM 40 MG VIAL IVP SCH (16:07)
[2018-05-16] MEDS ORDERED: IOHEXOL 350mgI/ML (OMNIPAQUE) 150 ML BTL IV ONE (16:07)
[2018-05-16] MEDS ORDERED: LORazepam 2 MG/ML INJ IVP PRN (17:40)
[2018-05-16] MEDS ORDERED: LORazepam 1 MG TAB PO SCH (18:00)
--- NOTE | 2018-05-16 18:00 | ECHO ---
[email or web address] [address] Main: [phone] Fax: Transthoracic Echocardiogram Name: PHAM MCGEE MR#: [id number] Study Date: 05/16/2018 Study Time: 03:17 PM Date of : 1985 Age: 33 year(s) Height: 182.9 cm (72 in.) Weight: 79.38 kg (175 lb.) BSA: 2.01 m2 Gender: Male Examination: Echo Indication: Atrial Fibrillation Image Quality: Adequate Contrast: Requested by: Arnaldo Spicer BP: / Heart Rate: Rhythm: Indication: Atrial Fibrillation Procedure Staff Polysomnographic Technologist: Savana Ronquillo [facility] Reading Physician: Stef Munguia MD Requesting Provider: Conclusions: Normal size left ventricle. No LV hypertrophy. Normal global systolic LV function. EF is 64 %. No regional wall motion abnormality. Normal diastolic LV function. Normal size right ventricle. The left atrium is normal in size. The right atrium is normal in size. The mitral valve is normal in appearance and function. Trivial mitral valve regurgitation. The aortic valve is tri-leaflet. There is no significant aortic valve regurgitation. The tricuspid valve is normal in appearance and function. Trivial tricuspid valve regurgitation. The pulmonic valve is normal in appearance and function. There is no pulmonic regurgitation seen. Normal size aortic root measuring 3.1 cm. The IVC is normal sized. No pleural effusion. Incidental: spot on liver. Measurements: Chambers Valvular Assessment AV/MV Valvular Assessment TV/PV Normal Normal Normal Name Value Range Name Value Range Name Value Range Ao Chata (2D): 3.1 cm (1.4 cm-2.6 AV Vmax: 1.50 m/s (1 m/s-1.7 PV Vmax: 1.28 m/s (0.6 m/s-0.9 cm) m/s) m/s) AV maxP mmHg ( - ) PV PGmax: 7 mmHg ( - ) Patient: PHAM MCGEE Study Date: 05/16/2018 Page 1 of 3 03:17 PM IVSd (2D): 0.9 cm (0.6 cm-1.1 AV meanP mmHg ( - ) cm) DAVE (VTI): 3.0 cm ( - ) LVDd (2D): 4.2 cm (4.2 cm-5.9 MV E Vmax: 0.76 m/s ( - ) cm) MV A Vmax: 0.67 m/s ( - ) LVDs (2D): 2.7 cm (2.1 cm-4 MV E/A: 1.13 ( - ) cm) MV PHT: 0.067 s ( - ) LVPWd (2D): 0.8 cm (0.6 cm-1 cm) MVA (PHT): 3.3 s ( - ) LVOTd 2.2 cm 2.2 cm mm LVEF (BP): 64 % (>=55 %) RVDd(2D): 3.8 cm (1.9 cm-3.8 cmmm) Continued Measurements: Chambers Valvular Assessment AV/MV Name Value Name Value LADs: 3.5 cm MV DecTime: 229 m/s LADs Lon.9 cm MV E' Septal: 0.12 m/s LA Area: 13.9 cm2 MV E/E' Septal: 6.50 LA Volume: 38 ml MV E/E' Lateral: 4.40 LA Volume Index: 18.9 ml/m2 RA Area: 15.2 cm2 Additional Vessels Name Value Ao Ascendin.8 cm Inferior Vena Cava: 1.4 cm Findings: Left Ventricle: Normal size left ventricle. No LV hypertrophy. Normal global systolic LV function. EF is 64 %. No regional wall motion abnormality. Normal diastolic LV function. Right Ventricle: Normal size right ventricle. Normal RV function. Left Atrium: The left atrium is normal in size. Right Atrium: The right atrium is normal in size. Mitral Valve: The mitral valve is normal in appearance and function. Trivial mitral valve regurgitation. No mitral stenosis is present. Aortic Valve: The aortic valve is tri-leaflet. There is no significant aortic valve regurgitation. No aortic valve stenosis is present. Tricuspid Valve: The tricuspid valve is normal in appearance and function. Trivial tricuspid valve regurgitation. Pulmonic Valve: The pulmonic valve is normal in appearance and function. There is no pulmonic regurgitation seen. Aorta: The aorta is normal. Normal size aortic root measuring 3.1 cm. Normal size ascending aorta measuring 2.8 cm. IVC: The IVC is normal sized. Pericardium: No pericardial effusion. No pleural effusion. Exam Comments: Incidental: spot on liver. Patient: PHAM MCGEE Study Date: 05/16/2018 Page 2 of 3 03:17 PM (No Signature Object) Patient: PHAM MCGEE Study Date: 05/16/2018 Page 3 of 3 03:17 PM [id number]
--- NOTE | 2018-05-16 19:56 | PDMN ---
Medical Necessity Medical necessity: Pt meets IP criteria as of 05/16/2018 per and DORETHA M-595 ( Substance-Related Disorders); est los > 2 mn for ongoing tx and management of acute alcohol withdrawal with tachycardia, nausea, vomiting, hyperbilirubinemia , abdominal pain and chest pain, CIWA score 24 upon arrival.
[2018-05-16] MEDS: LORazepam 2 MG/ML INJ IVP SCH (20:42)
[2018-05-16] MEDS ORDERED: FAMOTIDINE 20 MG TAB PO SCH (21:00)
[2018-05-17] MEDS: PANTOPRAZOLE SODIUM 40 MG VIAL IVP SCH ×3 (00:17→20:23)
[2018-05-17] MEDS: LORazepam 2 MG/ML INJ IVP SCH ×5 (00:18→23:43)
[2018-05-17] MEDS: DEXMEDETOMIDINE HCL 400 MCG in NS 100 ML IV SCH ×2 (00:28→08:20)
[2018-05-17 05:15] LABS: PLATELET COUNT 161 10^3/uL (150-400)
[2018-05-17] MEDS: THIAMINE HCL 500 MG in NS 100 ML IV SCH (08:15)
[2018-05-17] MEDS: ENOXAPARIN 40 MG/0.4 ML SYR SC SCH (08:17)
--- NOTE | 2018-05-17 09:48 | PDINTPN ---
Power Screwdriver Operator Progress Note Assessment/Plan: Assessment/plan: * Alcoholism * Alcohol withdrawals- -continue [facility] protocol * Chest pain-etiology which is unclear. Unlikely be cardiac in nature. CT angiogram of the chest and echocardiogram were negative. -follow closely * Nausea and vomiting -controlled * VT prophylaxis * Stress ulcer prophylaxis * Nutrition Subjective: Resting comfortably. No current complaints. Objective: Vital Signs Temp Pulse Resp BP Pulse Ox 37.1 C 65 16 115/74 97 05/17/18 07:32 05/17/18 07:32 05/17/18 07:32 05/17/18 07:32 05/17/18 07:32 Laboratory Results 05/17/18 04:55 05/17/18 04:55 05/16/18 05/17/18 05/18/18 05:59 05:59 05:59 Intake Total 2375 Output Total 350 600 Balance 2024 - Time Spent With Patient Time Spent With Patient: 35 min of time spent with patient, over 1/2 involved with coordination of care or counseling. Physical Exam - Physical Exam General Appearance: alert, no apparent distress EENT: PERRL/EOMI Neck: non-tender, supple Respiratory: chest non-tender, lungs clear, normal breath sounds Cardiac/Chest: normal peripheral pulses, regular rate, rhythm Peripheral Pulses: 2+: carotid (R), carotid (L), femoral (R), femoral (L), dorsalis-pedis (R), dorsalis-pedis (L) Abdomen: normal bowel sounds, non-tender, soft Male Genitalia: deferred Rectal: deferred Skin: normal color, warm/dry Extremities: normal range of motion, non-tender, normal inspection, normal capillary refill Neuro/Psych: no motor/sensory deficits, alert, normal mood/affect, oriented x 3 ICD10 Worksheet Patient Problems: Problems Problem Status Onset Alcohol withdrawal Acute Alcoholic ketoacidosis Acute Hyperkalemia Acute
[2018-05-17] MEDS: NS 1,000 ML IV SCH (10:11)
--- NOTE | 2018-05-17 10:46 | SOAPPROG ---
SOAP Progress Note Assessment/Plan: Assessment: 1. History of atrial fibrillation 2. Alcohol withdrawal 3. Chest pain. Impression: No evidence of acute coronary syndrome. Stable heart rhythm and hemodynamics. No new recommendations. Encourage recovery/abstinence. 05/17/18 10:44 Subjective: No chest pain, shortness of breath. Objective: Vital Signs Temp Pulse Resp BP Pulse Ox 37.1 C 65 16 115/74 97 05/17/18 07:32 05/17/18 07:32 05/17/18 07:32 05/17/18 07:32 05/17/18 07:32 Laboratory Results 05/17/18 04:55 05/17/18 04:55 05/16/18 05/17/18 05/18/18 05:59 05:59 05:59 Intake Total 2375 Output Total 350 600 Balance 2024 Physical Exam - Physical Exam Neck: supple Respiratory: lungs clear Cardiac/Chest: regular rate, rhythm, No JVD Abdomen: soft Skin: warm/dry, No rash Extremities: No pedal edema, No calf tenderness Neuro/Psych: depressed affect ICD10 Worksheet Patient Problems: Problems Problem Status Onset Alcoholic ketoacidosis Acute Hyperkalemia Acute Alcohol withdrawal Acute
--- NOTE | 2018-05-17 11:59 | ASMTCMCOM ---
CM Note CM Note Notes: 05/17/2018 Case Management Note Pt admitted for alcohol withdrawl. Reviewed chart and previous admissions. Pt is known to case management and has been provided resources as well as scheduled appointments in the past. Met w/pt. Pt states he wants to stop drinking. Pt states he recently started with a counselor at [facility], "Catina davalos", that he has seen 3 times prior to admission. Pt has not been evaluated by a psychiatrist. Provided variety of Medicaid specific resources for alcohol cessation. Referred to [facility]. Pt is employed through [employer]. No further case management d/c needs identified. Case Management d/c poc: independent with follow up as directed. Case Management available if needs change. Date Signed: 05/17/2018 11:57 AM Electronically Signed By:April Roberts RN
[2018-05-17] MEDS ORDERED: K PHOS 10 MMOL in D5W 250 ML IV ONE (12:00)
[2018-05-17] MEDS ORDERED: PROTOCOL K PHOSPHATE 1 DOSE IV PRN (13:25)
--- NOTE | 2018-05-17 13:25 | HOSPPROG ---
Hospitalist Progress Note Assessment/Plan: 33 year old male with pmh etoh abuse admitted with etoh withdrawal. Alcohol withdrawal (Acute)- Drinks a L a day and has been seen here multiple times for alcohol withdrawal. -CIWA protocol -He continued to score high on ciwa score despite max doses of ativan on 05/16, started on precedex. -Wean Precedex infusion today -Continue folic acid, thiamine, multivitamin -seizure precautions Acidosis- with elevated anion gap and very low bicarb on admission. -S/p IVF hydration -Bicarb improved from 9 to 19 this AM -Continue to monitor Chest pain- patient complained of chest pain upon arrival to [facility], which prompted an ecg due to ST elevation automatically triggered a cards eval. -trop negative -cards consult, do not believe pain is cardiac in nature - TTE performed without any RMWA, normal ED -CTA negative for PE Hx of atrial fibrillation- never actually documented here on tele or ecg, but patient says he has had paroxysmal afib, never lasted more than 24 hours. Currently NSR. His CHADS VASC is 0-. monitor NV- patient states he had blood tinged sputum in ER, but nurse says emesis was only stomach contents. -if any further vomiting check gastroccult -CT chest to rule out PE for chest pain negative for etiology Leukocytosis- likely acute phase reactant in the setting of alcohol withdrawal. Improved to 4.8 this AM Hyperbilirubinemia-likely secondary to heavy alcohol abuse. His liver function tests are actually better than they have been in the past. -monitor Prophylaxis-Lovenox, SCDs Fluids-intravenous saline Electrolytes-within normal limits Nutrition-regular diet Code-full cor Dispo-inpatient for acute alcohol withdrawal Subjective: Patient sleeping this morning Objective: Vital Signs Temp Pulse Resp BP Pulse Ox 36.6 C 50 L 12 112/77 100 05/17/18 12:00 05/17/18 12:00 05/17/18 12:00 05/17/18 12:00 05/17/18 12:00 Laboratory Results 05/17/18 04:55 05/17/18 04:55 05/16/18 05/17/18 05/18/18 05:59 05:59 05:59 Intake Total 2375 Output Total 350 600 Balance 2024 - Physical Exam Constitutional: no apparent distress Eyes: PERRL Ears, Nose, Mouth, Throat: moist mucous membranes Cardiovascular: regular rate and rhythym Respiratory: no respiratory distress Gastrointestinal: soft, non-tender abdomen Skin: warm Musculoskeletal: full muscle strength Neurologic: AAOx3 Psychiatric: interacting appropriately ICD10 Worksheet Patient Problems: Problems Problem Status Onset Alcohol withdrawal Acute Alcoholic ketoacidosis Acute Hyperkalemia Acute
[2018-05-17] MEDS: LORazepam 2 MG/ML INJ IVP PRN (20:30)
[2018-05-18] MEDS: LORazepam 2 MG/ML INJ IVP SCH (06:28)
[2018-05-18] MEDS: PANTOPRAZOLE SODIUM 40 MG VIAL IVP SCH (08:06)
[2018-05-18] MEDS: THIAMINE HCL 500 MG in NS 100 ML IV SCH (08:06)
[2018-05-18] MEDS: ENOXAPARIN 40 MG/0.4 ML SYR SC SCH (08:06)
[2018-05-18] MEDS: LORazepam 2 MG/ML INJ IVP PRN (08:23)
[2018-05-18] MEDS: NS 1,000 ML IV SCH (10:08)
[2018-05-18 12:06] VITALS: BP 117/74
--- NOTE | 2018-05-18 12:41 | ASMTDCNOTE ---
Case Management Discharge Discharge Order Complete? Answers: Yes Patient to Obtain Answers: via [facility] Transportation Arranged Answers: Other Notes: [facility] will Pick (Date 05/18/2018 01:15 PM & Time) Family Notified Answers: No Notes: pt refused Discharge Comments Notes: Spoke with pt in the room and with RN. Pt to discharge indendently and follow up with AA meetings and [facility] therapist. Pt states he can find a list of meeting times and locations online and will do so. Transport arranged through [employer]. No further CM needs noted at this time. CM available should needs change. Date Signed: 05/18/2018 12:40 PM Electronically Signed By:Kerrie Garcia
--- NOTE | 2018-05-18 12:41 | ASMTLACE ---
REGGIE Length of stay for Answers: 2 days current admission Acuity / Level of Answers: Yes Care: Did the patient have an inpatient admission? Comorbidities - select Answers: Other Notes: AFib all that apply # of Emergency department Answers: 3-4 visits in the last 6 months Social determinants Answers: History of substance abuse (ETOH, street drugs, prescription drugs, etc.) Score: 12 Date Signed: 05/18/2018 12:41 PM Electronically Signed By:Kerrie Garcia
--- NOTE | 2018-05-18 14:44 | PDDCSUM ---
Discharge Summary Discharge Summary: Date of Admission: 05/16/2018 Date of Discharge: 05/18/2018 Consults: Cardiology, Critical Care Procedures: CT Chest, TTE Followup: PCP Hospital Course Problem List: 33 year old male with pmh etoh abuse admitted with etoh withdrawal. Alcohol withdrawal (Acute)- Drinks a L a day and has been seen here multiple times for alcohol withdrawal. -CIWA protocol -He continued to score high on ciwa score despite max doses of ativan on 05/16, was started on precedex then weaned off. -Continue folic acid, thiamine, multivitamin Acidosis- with elevated anion gap and very low bicarb on admission. -S/p IVF hydration -Bicarb improved from 9 to 19 Chest pain- patient complained of chest pain upon arrival to [facility], which prompted an ecg due to ST elevation automatically triggered a cards eval. -trop negative -cards consult, do not believe pain is cardiac in nature -TTE performed without any RMWA, normal ED -CTA negative for PE Hx of atrial fibrillation- never actually documented here on tele or ecg, but patient says he has had paroxysmal afib, never lasted more than 24 hours. Currently NSR. His CHADS VASC is 0-. monitor NV- patient states he had blood tinged sputum in ER, but nurse says emesis was only stomach contents. Leukocytosis- likely acute phase reactant in the setting of alcohol withdrawal. Improved to 4.8 Hyperbilirubinemia-likely secondary to heavy alcohol abuse. His liver function tests are actually better than they have been in the past. -monitor Time spent on discharge was >35 minutes with >50% of time spent on patient education and counseling.
[2018-05-19] MEDS ORDERED: THIAMINE HCL 100 MG TAB PO SCH (13:16)
[2018-05-21] MEDS ORDERED: LORazepam 2 MG/ML INJ IVP SCH (18:00)
== END 2018-05-18 13:10 | disposition home or self-care (01) | DRG 775 ==
LOC: F2N 14:25 → F3E 05-17 17:51
PROVIDERS: ADMIT Internal Medicine; ATTEND Internal Medicine Gastroenterology
PROC: HZ2ZZZZ Detoxification Services for Substance Abuse Treatment (ICD-10-PCS; principal; 2018-05-16)
DX: F10.239 Alcohol dependence with withdrawal, unspecified (principal); E87.2 Acidosis; D72.829 Elevated white blood cell count, unspecified; E80.6 Other disorders of bilirubin metabolism; Y90.0 Blood alcohol level of less than 20 mg/100 ml; R07.9 Chest pain, unspecified; E86.0 Dehydration; R00.0 Tachycardia, unspecified; Z86.79 Personal history of other diseases of the circulatory system; Z87.891 Personal history of nicotine dependence
CPT/HCPCS: 96374; G0480; J1650; J2060; J2405; J2550; J3411; Q9967